=== PATIENT | female | born 1995 | race Hispanic/Latino ===

== ENCOUNTER 2022-02-23 12:51 | Outpatient (CLI) | payer OTHER | END 2022-02-23 12:52 | disposition home or self-care (01) | LOC: CSHULT 12:51 | PROVIDERS: ATTEND Family Medicine | DX: O09.892 Supervision of other high risk pregnancies, second trimester (principal); Z3A.22 22 weeks gestation of pregnancy | CPT/HCPCS: 76805 ==

== ENCOUNTER 2022-06-05 18:00 | Inpatient (IN) | payer MEDICAID, OTHER, SELFPAY ==
[~2022-06-05 18:00] MED LIST: Bupivacaine/Epinephrine 0.25% 30 ML VIAL ONE; Lidocaine 2% MPF 10 ML AMP (For Epidural Use) ONE
[2022-06-05] MEDS ORDERED: hydrALAZINE 20 MG/ML VIAL SLOW IVP PRN (19:45)
[2022-06-05] MEDS ORDERED: Misoprostol 200 MCG TAB PR PRN (19:45)
[2022-06-05] MEDS ORDERED: Ondansetron PF 4 MG/2 ML Vial IVP PRN (19:45)
[2022-06-05] MEDS ORDERED: Lidocaine 1% (PF) 30 ML VIAL SC PRN (19:45)
[2022-06-05] MEDS ORDERED: Methylergonovine 0.2 MG/ML VIAL IM PRN (19:45)
[2022-06-05] MEDS ORDERED: Promethazine HCl 25 MG/ML VIAL IM PRN (19:45)
[2022-06-05] MEDS ORDERED: Diphenoxylate HCl/Atropine Tablet PO PRN (19:45)
[2022-06-05] MEDS ORDERED: HYDROcodone/Acetaminophen 5/325 mg Tablet PO PRN (19:45)
[2022-06-05] MEDS ORDERED: Ibuprofen 800 MG TAB PO PRN (19:45)
[2022-06-05] MEDS ORDERED: Fentanyl 100 MCG/2 ML VIAL SLOW IVP PRN (19:45)
[2022-06-05] MEDS ORDERED: Carboprost 250 MCG/ML AMP IM PRN (19:45)
[2022-06-05] MEDS ORDERED: Tranexamic Acid 1,000 MG/10 ML VIAL IVP PRN (19:45)
[2022-06-05] MEDS ORDERED: Butorphanol Tartrate 1 MG/ML VIAL SLOW IVP PRN (19:45)
[2022-06-05 20:39] VITALS: BMI 33.1
[2022-06-05 20:45] LABS: Hemoglobin 12.7 g/dL (12.0-15.5); Mean Corpuscular HGB CONC 34.5 g/dL (32.0-36.0); Mean Corpuscular Hemoglobin 29.1 pg (27.0-33.0); Mean Corpuscular Volume 84.2 fl (81.6-98.3); Platelet Count 162 10x3/uL (150-450); RBC Distribution Width 13.2 % (11.5-14.5); Red Blood Cell (RBC) Count 4.37 10x6/uL (3.90-5.03); White Blood Cell (WBC) Count 9.9 10x3/uL (3.5-10.5)
[2022-06-05] MEDS ORDERED: Magnesium Sulfate 20 gm/500 ml 20 GM/500 ML BAG ONE (20:53)
[2022-06-05] MEDS ORDERED: NS w/ Oxytocin 30 units 500 ML IV SCH ×3 (21:00)
[2022-06-05] MEDS ORDERED: Labetalol HCl 100 MG/20 ML VIAL ONE (21:54)
[2022-06-05 22:03] LABS: HBSAg Index 0.18 S/CO (0-0.99); Hep B Surf Ag - L&D Non-Reactive S/CO (NonReactive)
[2022-06-05 22:05] LABS: Syphilis Antibody Nonreactive (Nonreactive); Syphilis Antibody Index 0.02 S/CO (<1.00 Non-Reactive)
[2022-06-05] MEDS: Labetalol HCl 100 MG TAB PO SCH (22:58)
[2022-06-05] MEDS ORDERED: Fentanyl 2 mcg/Bup 0.1% Cadd 100 ML ONE (23:56)
[2022-06-06] MEDS ORDERED: Acetaminophen 325 MG TAB PO PRN (00:27)
[2022-06-06] MEDS ORDERED: Ondansetron PF 4 MG/2 ML Vial IVP PRN ×2 (00:27→23:27)
[2022-06-06] MEDS ORDERED: Promethazine HCl 25 MG/ML VIAL IM PRN ×2 (00:27→23:27)
[2022-06-06] MEDS ORDERED: Lactated Ringer's 500 ML IV PRN (00:27)
[2022-06-06] MEDS ORDERED: diphenhydrAMINE 50 MG/ML VIAL IVP PRN ×2 (00:27→23:27)
[2022-06-06] MEDS ORDERED: Moisturizing Cream (Eucerin) 113 GM JAR TOP PRN ×2 (00:27→23:27)
[2022-06-06] MEDS ORDERED: ePHEDrine Sulfate 50 MG/10 ML VIAL SLOW IVP PRN (00:27)
[2022-06-06] MEDS ORDERED: Naloxone HCl 0.4 mg/ml Vial IVP PRN ×4 (00:27→23:27)
[2022-06-06] MEDS ORDERED: Fentanyl 2 mcg/Bupivacaine 0.1% Cassette 100 ML EPIDURAL SCH (00:30)
[2022-06-06] MEDS ORDERED: Communication Order-Pharmacy FS SCH ×2 (00:30→23:30)
[2022-06-06] MEDS: Acetaminophen 500 MG TAB PO PRN ×2 (03:53→14:10)
[2022-06-06] MEDS ORDERED: Magnesium Sulfate 20 gm/500 ml 20 GM/500 ML BAG ONE ×2 (04:49→15:06)
[2022-06-06] MEDS: Misoprostol 100 MCG TAB VAG SCH ×2 (04:53→04:55)
[2022-06-06] MEDS: Lactated Ringer's 1,000 ML IV SCH (04:53)
[2022-06-06] MEDS: Labetalol HCl 100 MG TAB PO SCH ×2 (06:28→14:10)
[2022-06-06] MEDS ORDERED: Fentanyl 2 mcg/Bup 0.1% Cadd 100 ML ONE ×2 (07:29→13:54)
[2022-06-06] MEDS ORDERED: Azithromycin 500 MG VIAL ONE (21:51)
[2022-06-06] MEDS ORDERED: CEFAZOLIN 2 GM VIAL ONE (21:51)
[2022-06-06] MEDS ORDERED: Ondansetron PF 4 MG/2 ML Vial ONE (22:23)
[2022-06-06] MEDS ORDERED: Dexamethasone 4 mg/ml Vial ONE (22:23)
[2022-06-06] MEDS ORDERED: Oxytocin 10 UNITS/ML VIAL ONE (22:23)
[2022-06-06] MEDS ORDERED: Fentanyl 100 MCG/2 ML VIAL ONE (22:24)
[2022-06-06] MEDS ORDERED: Lidocaine 2% MPF 10 ML AMP (For Epidural Use) ONE (22:25)
[2022-06-06] MEDS ORDERED: PHENYLEPHRINE-NS 100 MCG/ML 10 ML SYRINGE ONE (22:47)
[2022-06-06] MEDS ORDERED: Bupivacaine PF 0.5% 30 ML VIAL ONE (22:51)
[2022-06-06] MEDS ORDERED: Morphine PF 10 MG/10 ML VIAL ONE (23:12)
[2022-06-06] MEDS ORDERED: Ketorolac Tromethamine 30 MG/ML VIAL ONE (23:18)
[2022-06-06] MEDS ORDERED: Meperidine HCl/PF 25 MG/ML VIAL SLOW IVP PRN (23:27)
[2022-06-06] MEDS ORDERED: Naloxone HCl 0.4 mg/ml Vial IV PRN (23:27)
[2022-06-06] MEDS ORDERED: Promethazine HCl 25 MG SUPP PR PRN (23:27)
[2022-06-06] MEDS ORDERED: Fentanyl 100 MCG/2 ML VIAL SLOW IVP PRN (23:27)
[2022-06-06] MEDS ORDERED: Ondansetron HCl/PF 4 MG/2 ML Vial IVP PRN (23:27)
[2022-06-06] MEDS ORDERED: Calcium Gluc 4.6 MEQ/10 ML (100 MG/ML) SLOW IVP PRN (23:57)
[2022-06-06] MEDS ORDERED: Lorazepam 2 MG/ML VIAL SLOW IVP PRN (23:57)
[2022-06-07] MEDS ORDERED: Fentanyl 100 MCG/2 ML VIAL ONE (00:22)
[2022-06-07] MEDS ORDERED: Magnesium Sulfate 20 gm/500 ml 20 GM/500 ML BAG IVPB SCH (00:30)
[2022-06-07] MEDS ORDERED: Diphenoxylate HCl/Atropine Tablet PO SCH (00:45)
[2022-06-07] MEDS: Labetalol HCl 100 MG TAB PO SCH ×3 (00:48→16:22)
[2022-06-07] MEDS ORDERED: hydrALAZINE 20 MG/ML VIAL ONE (01:05)
[2022-06-07] MEDS: Ketorolac Tromethamine 30 MG/ML VIAL IVP SCH ×3 (05:20→18:05)
[2022-06-07] MEDS: Lactated Ringer's 1,000 ML IV SCH ×4 (05:22→21:08)
[2022-06-07] MEDS ORDERED: HumaLOG 300 UNITS/3 ML VIAL SC SCH ×2 (05:45→08:30)
[2022-06-07] MEDS ORDERED: Boostrix 0.5 ML (Tdap) VIAL (>/=7 yrs of age) IM ONE (15:36)
[2022-06-07] MEDS ORDERED: Acetaminophen 325 MG TAB PO PRN (15:36)
[2022-06-07] MEDS ORDERED: HYDROcodone/Acetaminophen 5/325 mg Tablet PO PRN (15:36)
[2022-06-07] MEDS ORDERED: Ferrous Sulfate 325 MG TAB PO SCH (15:45)
[2022-06-07] MEDS ORDERED: Prenatal Vitamin 1 TAB PO SCH (15:45)
[2022-06-07] MEDS ORDERED: Docusate 100 MG CAP PO SCH (15:45)
[2022-06-07] MEDS ORDERED: Polyethylene Glycol 3350 17 GM Packet PO SCH ×2 (15:45→21:00)
[2022-06-07] MEDS: Ferrous Sulfate 325 MG TAB PO SCH (21:08)
[2022-06-07] MEDS: Docusate 100 MG CAP PO SCH (21:33)
[2022-06-08] MEDS: Labetalol HCl 100 MG TAB PO SCH ×2 (01:30→18:02)
[2022-06-08] MEDS: Simethicone Chewable 80 MG TAB PO PRN ×2 (01:31→14:44)
[2022-06-08] MEDS: Ketorolac Tromethamine 30 MG/ML VIAL IVP SCH (04:02)
[2022-06-08 05:16] LABS: Hemoglobin 8.6 g/dL (12.0-15.5); Mean Corpuscular HGB CONC 33.9 g/dL (32.0-36.0); Mean Corpuscular Hemoglobin 29.1 pg (27.0-33.0); Mean Corpuscular Volume 85.8 fl (81.6-98.3); Mean Platelet Volume 13.5 fl (7.4-10.4); Platelet Count 151 10x3/uL (150-450); RBC Distribution Width 13.7 % (11.5-14.5); Red Blood Cell (RBC) Count 2.96 10x6/uL (3.90-5.03); White Blood Cell (WBC) Count 15.1 10x3/uL (3.5-10.5)
[2022-06-08] MEDS: Ibuprofen 800 MG TAB PO SCH ×3 (05:27→21:06)
[2022-06-08] MEDS: HYDROcodone/Acetaminophen 5/325 mg Tablet PO PRN ×4 (05:28→18:44)
[2022-06-08] MEDS: Lactated Ringer's 1,000 ML IV SCH ×2 (06:26→14:24)
[2022-06-08] MEDS: Docusate 100 MG CAP PO SCH ×2 (08:45→21:06)
[2022-06-08] MEDS: Prenatal Vitamin 1 TAB PO SCH (08:47)
[2022-06-08] MEDS: NIFEdipine XL 30 MG TAB PO SCH (08:49)
[2022-06-08] MEDS: Ferrous Sulfate 325 MG TAB PO SCH ×2 (08:50→21:06)
[2022-06-08] MEDS: metFORMIN 500 MG TAB PO SCH ×2 (08:50→16:25)
[2022-06-08] MEDS ORDERED: Lantus 1000 UNITS/10 ML VIAL SC SCH (21:00)
[2022-06-09] MEDS: HYDROcodone/Acetaminophen 5/325 mg Tablet PO PRN ×2 (02:15→10:34)
[2022-06-09] MEDS: Lactated Ringer's 1,000 ML IV SCH ×3 (02:48→07:35)
[2022-06-09] MEDS: Ibuprofen 800 MG TAB PO SCH (06:31)
[2022-06-09] MEDS: Ferrous Sulfate 325 MG TAB PO SCH (08:45)
[2022-06-09] MEDS: Docusate 100 MG CAP PO SCH (08:45)
[2022-06-09] MEDS: metFORMIN 500 MG TAB PO SCH (08:46)
[2022-06-09] MEDS: Prenatal Vitamin 1 TAB PO SCH (08:46)
[2022-06-09] MEDS: NIFEdipine XL 30 MG TAB PO SCH (08:46)
[2022-06-09 11:39] VITALS: BP 136/86; TEMP 98.6
== END 2022-06-09 12:35 | disposition home or self-care (01) | DRG 787 ==
LOC: CSHLD 18:57 → CSHPP 06-08
PROVIDERS: ADMIT Family Medicine; ATTEND Family Medicine
PROC: 10907ZC Drainage of Amniotic Fluid, Therapeutic from Products of Conception, Via Natural or Artificial Opening (ICD-10-PCS; 2022-06-05)
PROC: 3E033VJ Introduction of Other Hormone into Peripheral Vein, Percutaneous Approach (ICD-10-PCS; 2022-06-05)
PROC: 10D00Z1 Extraction of Products of Conception, Low, Open Approach (ICD-10-PCS; principal; 2022-06-06)
PROC: 3E0P05Z Introduction of Adhesion Barrier into Female Reproductive, Open Approach (ICD-10-PCS; 2022-06-06)
DX: O24.424 Gestational diabetes mellitus in childbirth, insulin controlled (principal); O10.92 Unspecified pre-existing hypertension complicating childbirth; Z79.899 Other long term (current) drug therapy; Z79.4 Long term (current) use of insulin; O62.1 Secondary uterine inertia; Z3A.37 37 weeks gestation of pregnancy; Z37.0 Single live birth; O32.4XX0 Maternal care for high head at term, not applicable or unspecified; R31.9 Hematuria, unspecified; O99.892 Other specified diseases and conditions complicating childbirth
CPT/HCPCS: 36415; 36416; 51702; 85027; 86780; 86850; 86900; 86901; 87340; J0360; J1100; J1815; J1885; J2274; J2405; J2590; J3010; J3475; J7120; S0020